=== PATIENT | male | born 1935 | race Caucasian/White ===

== ENCOUNTER 2018-02-15 13:23 | Observation (INO) | payer OTHER, MEDICARE ==
[~2018-02-15] VITALS: Ht 165.1 cm; Wt 51.0 kg
[~2018-02-15 13:23] MED LIST: ATORVASTATIN CA40 MG PO; ERGOCALCIF50000 UNIT PO; KEPPRA1000 MG PO; LO-DOSE ASPIRIN81 M1 PO; TOPAMAX200 MG PO; TRILEPTAL300 MG PO
[2018-02-15 14:43] LABS: HEMATOCRIT 36.7 % (38.0-50.0); HEMOGLOBIN 12.2 G/DL (12.5-16.6); MCH 33.6 PG (29.0-34.0); MCHC 33.2 G/DL (30.0-36.0); MCV 101.1 FL (86-99); PLATELET COUNT 98 K/uL (156-360); RBC DIS.WIDTH-CV 12.9 % (11.8-14.6); RBC DIS.WIDTH-SD 47.9 % (39-53); RED BLOOD COUNT 3.63 M/uL (4.00-5.50); WHITE BLOOD COUNT 3.5 K/uL (4.1-10.2)
[2018-02-15 14:51] LABS: CHLORIDE 110 mEq/L (99-109); POTASSIUM 4.4 mEq/L (3.7-5.4); SODIUM 140 mEq/L (136-147)
[2018-02-15 14:53] LABS: GLUCOSE 107 mg/dL (70-99)
[2018-02-15 14:57] LABS: CREATININE 1.1 mg/dL (0.6-1.3); GFR ESTIMATE (CALCULATED) > 59 mL/min/ (58.99-99999)
[2018-02-15 14:58] LABS: UREA NITROGEN (BUN) 17 mg/dL (9-23)
[2018-02-15 19:30] LABS: BASOPHIL (%) 0.6 % (0-1); EOSINOPHIL (%) 0.9 % (0-5); IMMATURE GRANULOCYTE (%) 0.3 % (0.0-0.7); LYMPHOCYTE (%) 25.4 % (15-42); LYMPHOCYTE COUNT 0.9 K/uL (1.0-2.8); MONOCYTE (%) 9.5 % (3-12); MONOCYTE COUNT 0.3 K/uL (0-0.8); NEUTROPHIL (%) 63.3 % (45-76); NEUTROPHIL COUNT 2.2 K/uL (1.8-6.4)
[2018-02-15 19:33] LABS: MAGNESIUM 2.2 mg/dL (1.3-2.7)
[2018-02-15 19:35] LABS: TOTAL PROTEIN 6.6 g/dL (6.4-8.3)
[2018-02-15 19:37] LABS: TOTAL BILIRUBIN 0.3 mg/dL (0.0-1.0)
[2018-02-15 19:38] LABS: ALKALINE PHOSPHATASE 92 IU/L (3-129)
[2018-02-15 19:41] LABS: ALT (GPT) 18 IU/L (3-49); AST (GOT) 23 IU/L (2-34); DIRECT BILIRUBIN 0.1 mg/dL (0.0-0.3)
[2018-02-15 19:45] LABS: TROP-I INTERPRETATION NEGATIVE; TROPONIN-I < 0.01 ng/mL (0.0-0.30)
[2018-02-15 20:39] LABS: PTT 34.1 SEC (25-37)
[2018-02-15 21:07] VITALS: BP 191/92
[2018-02-15 21:13] LABS: THYROTROPIN (TSH) 2.8 MIU/L (0.4-5.5)
[2018-02-15 21:32] LABS: HDL CHOLESTEROL 76 MG/DL (Desirable>=40); IRON 107 MCG/DL (35-150); LDL CHOLESTEROL 75 mg/dL (Desirable<100); NON-HDL CHOLESTEROL 86 mg/dL (Desirable<160); TOTAL CHOLESTEROL 162 mg/dL (Desirable<200); TRANSFERRIN (TIBC) 185.2 mg/dL (215-380); TRANSFERRIN SATUR. 58 % (20-55); TRIGLYCERIDES 53 MG/DL (Normal: <150)
[2018-02-15 22:11] LABS: SERUM ETHYL ALCOHOL < 10 mg/dL
[2018-02-15 22:21] LABS: APPEARANCE CLEAR ((CLEAR)); BILIRUBIN NEGATIVE; BLOOD NEGATIVE; COLOR YELLOW ((YELLOW)); GLUCOSE (STRIP) NEGATIVE; KETONES NEGATIVE; LEUKOCYTES NEGATIVE; NITRITE NEGATIVE; PROTEIN (STRIP) NEGATIVE; SPECIFIC GRAVITY 1.012 (1.000-1.030); UCUL ADDED? NO; UROBILINOGEN 0.2 MG/DL (0.2-1.0)
[2018-02-15 22:45] LABS: BENZODIAZEPINES, URINE SCREEN Negative (200 ng/mL)
[2018-02-16 03:43] VITALS: BP 133/63
[2018-02-16 07:45] VITALS: BP 145/69
[2018-02-16 08:58] LABS: HEMOGLOBIN A1c (GLYCOHEMOGLOB) 5.3 % (Below 5.7)
[2018-02-16 11:42] VITALS: BP 112/57
[2018-02-16 15:36] VITALS: BP 124/60
[2018-02-16] MEDS ORDERED: VITAMIN B122500 MCG PO (16:23)
[2018-02-16 19:45] VITALS: BP 116/66
[2018-02-16 23:44] VITALS: BP 165/71
[2018-02-17 04:00] VITALS: BP 122/64
[2018-02-17 04:19] VITALS: BP 129/60
[2018-02-17 05:38] LABS: HEMATOCRIT 34.3 % (38.0-50.0); HEMOGLOBIN 11.3 G/DL (12.5-16.6); MCH 33.1 PG (29.0-34.0); MCHC 32.9 G/DL (30.0-36.0); MCV 100.6 FL (86-99); RBC DIS.WIDTH-CV 12.6 % (11.8-14.6); RBC DIS.WIDTH-SD 46.5 % (39-53); RED BLOOD COUNT 3.41 M/uL (4.00-5.50); WHITE BLOOD COUNT 3.9 K/uL (4.1-10.2)
[2018-02-17 05:40] LABS: PLATELET COUNT 97 K/uL (156-360)
[2018-02-17 06:01] LABS: CHLORIDE 107 MEQ/L (99-109); CREATININE 1.2 MG/DL (0.6-1.3); GFR ESTIMATE (CALCULATED) > 59 mL/min/ (58.99-99999); GLUCOSE 95 mg/dL (70-99); MAGNESIUM 2.1 mg/dl (1.3-2.7); SODIUM 137 MEQ/L (136-147); UREA NITROGEN (BUN) 16 mg/dL (9-23)
[2018-02-17 08:20] VITALS: BP 130/61
[2018-02-17 11:50] VITALS: BP 126/58
[2018-02-17 13:29] LABS: INTRINSIC FACTOR BLOCKING ABY+ Negative (Negative)
[2018-02-17 15:07] VITALS: BP 121/56
[2018-02-17 20:00] VITALS: BP 139/65
[2018-02-18] VITALS (7 sets, daily range): BP systolic 124–152; BP diastolic 60–78
[2018-02-19 18:47] LABS: PARIETAL CELL ANTIBODY+ <=20.0 Unit (<=20.0)
== END 2018-02-19 15:21 | disposition home or self-care (01) ==
LOC: EME 13:23 → EDOF 19:15 → 4SOUTH 19:15 → ENRESERV 19:18 → 4SOUTH 21:00 → ENPENDDIS 02-19 → 4SOUTH 02-19 15:21
PROVIDERS: Emergency Medicine; Internal Medicine; Physician Assistant Medical
PROC: B246ZZZ Ultrasonography of Right and Left Heart (ICD-10-PCS; principal; 2018-02-18)
DX: R53.1 Weakness (principal); E53.8 Deficiency of other specified B group vitamins; D61.818 Other pancytopenia; G62.9 Polyneuropathy, unspecified; Z99.3 Dependence on wheelchair; I65.22 Occlusion and stenosis of left carotid artery; Z86.73 Personal history of transient ischemic attack (TIA), and cerebral infarction without residual deficits; E55.9 Vitamin D deficiency, unspecified; M19.90 Unspecified osteoarthritis, unspecified site; M81.0 Age-related osteoporosis without current pathological fracture; G40.909 Epilepsy, unspecified, not intractable, without status epilepticus; E73.9 Lactose intolerance, unspecified; Z79.82 Long term (current) use of aspirin; N18.2 Chronic kidney disease, stage 2 (mild); Z66 Do not resuscitate
CPT/HCPCS: 70450; 71045; 80048; 80061; 80076; 80306 90; 81003; 82306; 82607; 82746; 83036; 83090 90; 83516 90; 83540; 83735; 83921 90; 84443; 84466; 84484; 85025; 85027; 85610; 85730; 86340 90; 92610 GN; 93005; 93306; 93880; 95819; 97530 GO; 97530 GP; 99281; 99285; G0378; G0480; G8978 GP CK; G8979 CJ; G8987 GO CM; G8988 GO CL; G8996 GN CI; G8997 GN CI; G8998 GN CI; J1644; J3420